=== PATIENT | female | born 1985 | race Caucasian/White ===

== ENCOUNTER 2016-05-10 20:37 | Emergency (ER) | payer OTHER, MEDICAID ==
[~2016-05-10 20:37] MED LIST: IBUP400T20 PO; LORT5TAB PO; POLY10O OS; VIST25CA PO
[2016-05-10 20:41] VITALS: BP 149/98; PULSE 92; RESP 20; TEMP 98.9; O2SAT 96
[2016-05-10] MEDS ORDERED: LIDOCAINE HCL 1% 50 ML VIAL INFIL ONE (22:45)
[2016-05-10] MEDS ORDERED: TETANUS/DIPHTHERIA TOXOID ADULT 0.5 ML VIAL IM ONE (22:45)
--- NOTE | 2016-05-10 22:47 | PD ---
HPI Chief Complaint: Laceration/Skin Injury Time Seen by Provider: 22:38 Travel History International Travel<30 days: No Contact w/Intl Traveler<30days: No Traveled to known affect area: No History of Present Illness HPI 30-year-old female here for evaluation of laceration to right third finger. Patient reports the laceration is from a broken ceramic cup that occurred just prior to arrival to the emergency department. No other injuries. Date of last tetanus is unknown. She is right-handed. [facility] Past Medical History ?: Not LMP: : 1 Para: 1 Past Surgical History Section: Yes Social History Alcohol Use: No Tobacco Use: No Substance Use: No Allergies-Medications (Allergen,Severity, Reaction): Coded Allergies: No Known Allergies (Verified , 05/10/16) Reported Meds & Prescriptions Reported Meds & Active Scripts Active No Active Prescriptions or Reported Medications Review of Systems Except as stated in HPI: all other systems reviewed are Neg Physical Exam Narrative GENERAL: Well-developed, well-nourished, comfortable, no acute distress. SKIN: V-shaped laceration to the dorsal aspect of the right third finger over the middle phalanx, moderate depth. This laceration was explored in a bloodless field and although the extensor tendon is exposed, there are no injuries to the extensor tendon which was evaluated and full range of flexion and extension. There are no obvious foreign bodies in the wound. CARDIOVASCULAR: Regular rate and rhythm. Bilateral distal radial pulses are brisk and equal. Capillary refill and right third finger is normal. MUSCULOSKELETAL: Skin exam as above. Normal range of flexion and extension in right third finger with and without resistance. NEUROLOGICAL: Awake and alert. No obvious cranial nerve deficits. Motor grossly within normal limits. Normal speech. Normal sensation in right third finger. PSYCHIATRIC: Appropriate mood and affect; insight and judgment normal. Data Data Last Documented VS Vital Signs Date Time Temp Pulse Resp B/P Pulse Ox O2 Delivery O2 Flow Rate FiO2 05/10/16 20:41 98.9 92 20 149/98 96 Orders Finger ([id number]) (05/10/16 ) Tetanus/Diphtheria Tox Adult (Tetanus/Di (05/10/16 22:45) Lidocaine 1% Inj (50 Ml) (Xylocaine 1% I (05/10/16 22:45) MDM Medical Decision Making Medical Screen Exam Complete: Yes Emergency Medical Condition: Yes Differential Diagnosis Laceration, wound foreign body Narrative Course Right third finger x-ray shows no foreign body. Digital block performed and right third finger and laceration repaired by me. See procedure note. Finger splinted to prevent patient from flexing and tearing out sutures. She will be started on Keflex for prophylaxis. Tetanus updated. Suture removal in 10 days. She was informed on when to return to the emergency Department sooner especially if there are signs of infection. She verbalizes understanding and agreement with plan. Procedures Procedure Narrative Right third finger digital block: Base of right finger prepped with Betadine. A total of 4 cc of 1% lidocaine was used for digital block. Tolerated well. No complications. LACERATION REPAIR LOCATION: Right third finger LENGTH: 5.5 cm NUMBER OF STITCHES/CARINA: Eight 5-0 nylon simple interrupted sutures REPAIR: The area of the laceration was prepped with Betadine and sterilely draped. The wound was copiously irrigated and explored without evidence of foreign body, tendon injury or neurovascular injury. The wound was closed using Eight 5-0 nylon simple interrupted sutures. This was a single layer repair. A sterile dressing was applied. The patient was advised to keep the dressing clean and dry. Patient tolerated the procedure well. Diagnosis Primary Impression: Laceration of right middle finger Referrals: Primary Care Physician 3 days Additional Instructions: Have sutures removed in 10-14 days. Take antibiotics as prescribed. Return to the emergency department for worsening symptoms or any other concerns as discussed. Scripts Cephalexin (Keflex)500 Mg Qps847 Mg PO Q8H #30 CAP Ref 0 Prov:Dedrick Allen MD 05/10/16 Disposition: 01 DISCHARGE HOME Condition: Stable Dedrick Allen MD May 10, 2016 22:47
--- NOTE | 2016-05-10 23:20 | RADHPO ---
EXAM DATE/TIME: 05/10/2016 22:52 [facility] COMPARISON: No previous studies available for comparison. INDICATIONS : Laceration to right 3rd figer. MEDICAL HISTORY : None. SURGICAL HISTORY : section. ENCOUNTER: Initial ACUITY: 1 day PAIN SCORE: 5/10 LOCATION: Right 3rd finger FINDINGS: Examination of the third digit of the right hand demonstrates no evidence of fracture or dislocation. No radiopaque foreign bodies are seen. The soft tissues are intact. CONCLUSION: 1. There is no evidence of acute fracture. Cristhian Hollingsworth MD on May 10, 2016 at 23:18 Board Certified Radiologist. This report was verified electronically.
[2016-05-10] MEDS ORDERED: CEPHALEXIN MONOHYDRATE 500 MG CAP PO ONE (23:30)
[2016-05-10] MEDS ORDERED: CEPH-460 PO (23:34)
== END 2016-05-10 23:43 | disposition home or self-care (01) ==
LOC: PHED 20:37 → PHEFT 23:43
DX: S61.213A Laceration without foreign body of left middle finger without damage to nail, initial encounter (principal); Z23 Encounter for immunization; W25.XXXA Contact with sharp glass, initial encounter; Y99.8 Other external cause status
CPT/HCPCS: 12002; 73140; 90471; 90714

== ENCOUNTER 2016-05-19 14:37 | Emergency (ER) | payer MEDICAID ==
[~2016-05-19] VITALS: Ht 157.5 cm; Wt 109.0 kg
[~2016-05-19 14:37] MED LIST changes: +CEPH-460 PO; -IBUP400T20 PO; -LORT5TAB PO; -POLY10O OS; -VIST25CA PO
[2016-05-19 14:38] VITALS: BP 143/85; PULSE 88; RESP 18; TEMP 98; O2SAT 98
--- NOTE | 2016-05-19 14:52 | PD ---
HPI . Suture removal Chief Complaint: Wound/Suture/Staple Re-Check Time Seen by Provider: 14:47 Travel History International Travel<30 days: No Contact w/Intl Traveler<30days: No Traveled to known affect area: No History of Present Illness HPI Patient is here for suture removal from her right middle finger. Sutures were placed 10 days ago. Patient reports no problems with the wound. PFSH Past Medical History Tetanus Vaccination: < 5 Years Influenza Vaccination: No ?: Not LMP: 04/21/16 : 1 Para: 1 Past Surgical History Section: Yes Social History Alcohol Use: No Tobacco Use: No Substance Use: No Allergies-Medications (Allergen,Severity, Reaction): Coded Allergies: No Known Allergies (Verified , 05/10/16) Reported Meds & Prescriptions Reported Meds & Active Scripts Active Keflex (Cephalexin) 500 Mg Cap 500 Mg PO Q8H Review of Systems Skin: Positive Other (healing wound right middle finger) Physical Exam Narrative GENERAL: Awake and alert and in no acute distress. SKIN: Warm and dry. She has a healing wound on the dorsal aspect of the right middle finger. No evidence of infection such as drainage or redness. CARDIOVASCULAR: Regular rate and rhythm. RESPIRATORY: No accessory muscle use. MUSCULOSKELETAL: No obvious deformities. No edema. NEUROLOGICAL: Awake and alert. No obvious cranial nerve deficits. Motor grossly within normal limits. Normal speech. PSYCHIATRIC: Appropriate mood and affect; insight and judgment normal. Data Data Last Documented VS Vital Signs Date Time Temp Pulse Resp B/P Pulse Ox O2 Delivery O2 Flow Rate FiO2 05/19/16 14:38 98.0 88 18 143/85 98 MDM Medical Decision Making Medical Screen Exam Complete: Yes Emergency Medical Condition: Yes Medical Record Reviewed: Yes (patient was seen here on May 10 for the wound on the right.) Differential Diagnosis Differential diagnosis includes healing wound, wound infection, retained foreign body Narrative Course Patient is here for suture removal from her right middle finger. The wound looks good with no sign of infection. Sutures will be removed. Diagnosis Primary Impression: Visit for suture removal Patient Instructions: General Instructions Additional Instructions: Use any antibiotic ointment a couple times a day. Disposition: 01 DISCHARGE HOME Condition: Stable Holly Crespo MD May 19, 2016 14:52
== END 2016-05-19 15:09 | disposition home or self-care (01) ==
LOC: PHEFT 14:37
DX: S61.212D Laceration without foreign body of right middle finger without damage to nail, subsequent encounter (principal); Z48.02 Encounter for removal of sutures; X58.XXXD Exposure to other specified factors, subsequent encounter
CPT/HCPCS: 99281